=== PATIENT | male | born 1940 | race Caucasian/White ===

== ENCOUNTER 2017-08-21 12:10 | Emergency (ER) | payer OTHER, BC ==
[~2017-08-21] VITALS: Ht 175.3 cm; Wt 80.6 kg
[~2017-08-21 12:10] MED LIST: ADVAIR 250/501 DISK IH; AZITHROMYCIN250 MG PO; BENICAR20 MG PO; BENICAR40 MG; BENICAR40 MG PO; CENTRUM SILVER1 EAC3 PO; FISH OIL 1,0001 EA10 PO; LEVAQUIN500 MG PO; MONTELUKAST SOD10 MG; MONTELUKAST SOD10 MG PO; NORCO 5/3251 TABLET PO; SIMVASTATIN PO; SIMVASTATIN80 MG; SIMVASTATIN80 MG PO; SPIRIVA1 INHALATI IH; SYMBICORT60 INHALAT IH; ZOFRAN8 MG PO
[2017-08-21 12:35] LABS: HEMATOCRIT 47.3 % (38.0-50.0); HEMOGLOBIN 16.1 G/DL (12.5-16.6); MCV 88.1 FL (86-99); PLATELET COUNT 263 K/uL (156-360); RBC DIS.WIDTH-CV 12.3 % (11.8-14.6); RBC DIS.WIDTH-SD 39.8 % (39-53); RED BLOOD COUNT 5.37 M/uL (4.00-5.50); WHITE BLOOD COUNT 9.2 K/uL (4.1-10.2)
[2017-08-21 12:45] LABS: CHLORIDE 108 mEq/L (99-109); POTASSIUM 4.5 mEq/L (3.7-5.4); SODIUM 142 mEq/L (136-147)
[2017-08-21 12:46] LABS: GLUCOSE 112 mg/dL (70-99)
[2017-08-21 12:50] LABS: CREATININE 1.7 mg/dL (0.6-1.3); GFR ESTIMATE (CALCULATED) 42 mL/min/ (58.99-99999)
[2017-08-21 12:51] LABS: UREA NITROGEN (BUN) 25 mg/dL (9-23)
[2017-08-21 12:55] LABS: TROP-I INTERPRETATION NEGATIVE; TROPONIN-I < 0.01 ng/mL (0.0-0.30)
[2017-08-21] MEDS ORDERED: VENTOLIN HFA18 GM IH (14:15)
[2017-08-21] MEDS ORDERED: AZITHROMYCIN250 MG1 PO (14:55)
[2017-08-21] MEDS ORDERED: ATROVENT 00.5 MG/2.5 IH (14:56)
[2017-08-21] MEDS ORDERED: NEBULIZER MC (14:56)
[2017-08-21 15:43] VITALS: BP 120/92
== END 2017-08-21 15:45 | disposition home or self-care (01) ==
LOC: EME 12:10
DX: J18.9 Pneumonia, unspecified organism (principal); J44.0 Chronic obstructive pulmonary disease with (acute) lower respiratory infection; J45.901 Unspecified asthma with (acute) exacerbation; I10 Essential (primary) hypertension; A69.20 Lyme disease, unspecified; Z87.891 Personal history of nicotine dependence; Z87.442 Personal history of urinary calculi; Z90.49 Acquired absence of other specified parts of digestive tract; Z88.2 Allergy status to sulfonamides; Z88.5 Allergy status to narcotic agent
CPT/HCPCS: 71046; 80048; 84484; 85027; 93005; 94640; J7512